=== PATIENT | female | born 1955 | race Caucasian/White ===

== ENCOUNTER 2017-07-22 13:23 | Outpatient (CLI) | payer OTHER ==
--- NOTE | 2017-07-23 17:26 | Mammography Report ---
DIGITAL SCREENING MAMMOGRAM: 07/22/2017 CLINICAL INDICATION: A 61-year-old with history of late childbearing for screening. COMPARISON: 06/2015, 10/2014, 03/2014, 07/2013, 06/2012, 05/2011. TECHNIQUE: Routine CC and MLO projections as well as bilateral laterally exaggerated craniocaudal vi ews were obtained of the breasts. The breasts demonstrate scattered fibroglandular densities bilaterally. Coarse and punctate, typical ly benign calcifications are present. No suspicious masses, clustered microcalcifications, or region s of architectural distortion are identified. IMPRESSION: BENIGN FINDINGS. RECOMMENDATION: ROUTINE ANNUAL SCREENING UNLESS OTHERWISE CLINICALLY INDICATED. BIRADS CATEGORY: 2, BENIGN FINDINGS. STANDARD QUALIFYING STATEMENTS 1. This examination was reviewed with the aid of Computed-Aided Detection (CAD). 2. A negative or benign imaging report should not delay biopsy if clinically suspicious findings are present. Consider surgical consultation if warranted. More than 5% of cancers are not identified b y imaging. 3. Dense breasts may obscure an underlying neoplasm. JOB #: [id number] EXT JOB #:[id number]
== END 2017-07-22 13:24 | disposition home or self-care (01) ==
LOC: DI.S 13:23
PROVIDERS: ATTEND Physician Assistant
DX: Z12.31 Encounter for screening mammogram for malignant neoplasm of breast (principal)
CPT/HCPCS: 77067

== ENCOUNTER 2017-11-16 07:52 | Day surgery (SDC) | payer OTHER ==
[2017-11-16] MEDS ORDERED: LACTATED RINGERS 1,000 ML IV ONE (08:14)
[2017-11-16] MEDS ORDERED: fentaNYL 250 MCG/5 ML VIAL IVP ONE (09:05)
[2017-11-16] MEDS ORDERED: MIDAZOLAM 2 MG/2 ML VIAL IVP ONE (09:05)
[2017-11-16 10:14] VITALS: BP 128/75
== END 2017-11-16 07:53 | disposition home or self-care (01) ==
LOC: SDS 07:52
PROVIDERS: ATTEND Surgery
PROC: 0DBN8ZX Excision of Sigmoid Colon, Via Natural or Artificial Opening Endoscopic, Diagnostic (ICD-10-PCS; 2017-11-16)
PROC: 3E0H8GC Introduction of Other Therapeutic Substance into Lower GI, Via Natural or Artificial Opening Endoscopic (ICD-10-PCS; 2017-11-16)
PROC: 0DBL8ZX Excision of Transverse Colon, Via Natural or Artificial Opening Endoscopic, Diagnostic (ICD-10-PCS; principal; 2017-11-16 09:00)
DX: Z12.11 Encounter for screening for malignant neoplasm of colon (principal); D12.3 Benign neoplasm of transverse colon; D12.5 Benign neoplasm of sigmoid colon; K64.4 Residual hemorrhoidal skin tags
CPT/HCPCS: 45380; 45381; 45385; J3010; J7120

== ENCOUNTER 2018-01-19 15:35 | Outpatient (CLI) | payer OTHER ==
--- NOTE | 2018-01-20 09:37 | XRAY Report ---
TWO VIEW CHEST: 01/19/2018 CLINICAL INDICATION: Pneumonia. FINDINGS: Frontal and lateral views of the chest demonstrate a normal cardiac silhouette. The lungs are clear. No effusion or pneumothorax is present. IMPRESSION: NORMAL CHEST. TD: 01/20/2018 09:01
== END 2018-01-19 15:36 | disposition home or self-care (01) ==
LOC: DI.S 15:35
PROVIDERS: ATTEND Physician Assistant
DX: J18.9 Pneumonia, unspecified organism (principal); J98.4 Other disorders of lung
CPT/HCPCS: 71046

== ENCOUNTER 2018-12-31 09:36 | Outpatient (CLI) | payer MEDICARE ==
--- NOTE | 2019-01-03 09:52 | CT Report ---
Reason: SOLITARY PULMONARY NODULE Procedure Date: 12/31/2018 Accession Number: [id number] / [id number] Procedure: CT - CHEST WO CPT Code: FULL RESULT: EXAM: CT CHEST EXAM DATE: 12/31/2018 09:49 AM. CLINICAL HISTORY: Solitary pulmonary nodule. COMPARISONS: CHEST 2 VIEW 01/19/2018 3:50 PM SHOULDER 2 VIEW LT 09/27/2018 3:18 PM. TECHNIQUE: Routine helical CT imaging was performed through the chest. IV contrast: None. Reconstructions: Coronal and sagittal. In accordance with CT protocol optimization, one or more of the following dose reduction techniques were utilized for this exam: automated exposure control, adjustment of mA and/or KV based on patient size, or use of iterative reconstructive technique. FINDINGS: Lungs/Pleura: In the lateral right lower lobe, series 4 image 39, there is a 3 mm semisolid nodule. No additional pulmonary nodules appreciated. No bronchial thickening, consolidation, or edema. Pulmonary vasculature is normal. No pericardial or pleural effusion. No pneumothorax. Mediastinum: Normal. No adenopathy or masses. The heart and great vessels are normal. Bones: Degenerative osteophytosis of the thoracic spine. Visualized Abdomen: Unremarkable. Other: None. IMPRESSION: 1. Single 3 mm semisolid nodule right lower, lobe series 4 image 39. Recommend follow-up based on Fleischner criteria. If patient is low risk, no specific follow-up is recommended. If patient is at high risk for development of lung cancer, follow-up CT in 12 months would be recommended. RADIA
== END 2018-12-31 09:37 | disposition home or self-care (01) ==
LOC: DI 09:36
PROVIDERS: ATTEND Physician Assistant
DX: R91.1 Solitary pulmonary nodule (principal)
CPT/HCPCS: 71250

== ENCOUNTER 2019-05-26 15:15 | Outpatient (CLI) | payer MEDICARE ==
--- NOTE | 2019-05-26 16:54 | Mammography Report ---
Reason: SCREENING MAMMO Procedure Date: 05/26/2019 Accession Number: [id number] / [id number] Procedure: VANESSA - Screening Mammo w/J Carlos CPT Code: FULL RESULT: EXAM: Screening Mammo w/J Carlos DATE: 05/26/2019 3:40 PM CLINICAL HISTORY: Screening TECHNIQUE: (B) - Bilateral CC and MLO views were obtained. COMPARISON: 06/25/2017, 07/04/2015, 10/22/2014, 04/02/2014 PARENCHYMAL PATTERN: (A) - The breasts demonstrate scattered fibroglandular densities bilaterally. FINDINGS: There are no suspicious masses, calcifications, or areas of distortion. IMPRESSION: Negative examination. BI-RADS category 1. RECOMMENDATION: (ANNUAL) - Recommend routine annual screening mammography. BI-RADS CATEGORY: (1) - Negative. STANDARD QUALIFYING STATEMENTS: 1. This examination was not reviewed with the aid of Computer-Aided Detection (CAD). 2. A negative or benign imaging report should not preclude biopsy if clinically suspicious findings are present. 3. Dense breasts may obscure an underlying neoplasm. 4. This examination was reviewed with the aid of 3D breast imaging (tomosynthesis).
== END 2019-05-26 15:16 | disposition home or self-care (01) ==
LOC: DI 15:15
DX: Z12.31 Encounter for screening mammogram for malignant neoplasm of breast (principal)
CPT/HCPCS: 77063; 77067

== ENCOUNTER 2020-05-13 15:24 | Outpatient (CLI) | payer MEDICARE ==
--- NOTE | 2020-05-13 17:49 | XRAY Report ---
PROCEDURE: Knee 3 View RT INDICATIONS: PAIN IN RIGHT KNEE TECHNIQUE: 3 views of the right knee(s) were acquired. COMPARISON: None. FINDINGS: Bones: No fractures or dislocations. Mild to moderate tricompartment osteoarthritis is seen more pro minent in medial femoral tibial compartment. No suspicious bony lesions. Soft tissues: Small to moderate joint effusion is noted. No suspicious soft tissue calcifications. IMPRESSION: Mild to moderate tricompartmental osteoarthritis with small to moderate joint effusion. No fracture or dislocation. Reviewed by: Joao Boswell MD on 05/13/2020 5:48 PM PDT Approved by: Joao Boswell MD on 05/13/2020 5:48 PM PDT Station ID: [id number]
== END 2020-05-13 15:25 | disposition home or self-care (01) ==
LOC: DI.S 15:24
PROVIDERS: ATTEND Nurse Practitioner Family
DX: M17.11 Unilateral primary osteoarthritis, right knee (principal)

== ENCOUNTER 2020-07-08 12:43 | Outpatient (CLI) | payer MEDICARE ==
--- NOTE | 2020-07-09 15:07 | Mammography Report ---
BILATERAL DIGITAL SCREENING MAMMOGRAM 3D/2D: 07/08/2020 CLINICAL: Routine screening. Comparison is made to exams dated: 05/26/2019 mammogram, 07/22/2017 mammogram, 07/04/2015 mammogram, 10/22/2014 mammogram, and 04/02/2014 mammogram - [facility]. The tissue of both breas ts is heterogeneously dense. This may lower the sensitivity of mammography. No significant masses, calcifications, or other findings are seen in either breast. There has been no significant interval change. IMPRESSION: NEGATIVE There is no mammographic evidence of malignancy. A 1 year screening mammogram is recommended. This exam was interpreted at Station ID: [id number]. NOTE: For mammograms, a report in lay terms will be sent to the patient. Approximately 15% of breast malignancies will not be visualized mammographically. In the management of a palpable breast mass, a negative mammogram must not discourage biopsy of a clinically suspicious lesion. Electronically Signed By: Jaxon no/cari:07/09/2020 12:21:03 ACR BI-RADS Category 1: Negative 3341F PARENCHYMAL PATTERN: (D) - The breast(s) demonstrate(s) heterogeneously dense fibroglandular kathleen kennedy. BI-RADS CATEGORY: (1) - 1 RECOMMENDATION: (ANNUAL) - Recommend routine annual screening mammography. [id number] 1 year screening LATERALITY: (B)
== END 2020-07-08 12:44 | disposition home or self-care (01) ==
LOC: DI 12:43
PROVIDERS: ATTEND Nurse Practitioner Family
DX: Z12.31 Encounter for screening mammogram for malignant neoplasm of breast (principal)

== ENCOUNTER 2020-07-08 12:44 | Outpatient (CLI) | payer MEDICARE ==
--- NOTE | 2020-07-08 15:37 | Ultrasound Report ---
PROCEDURE: Head or Neck Soft Tissue INDICATIONS: LOCALIZED ENLARGED LYMPH NODES TECHNIQUE: Real time scanning was performed of the neck region of interest, with image documentation . COMPARISON: None. FINDINGS: Sonographic images of the inferior supraclavicular region demonstrate a small lymph node me asuring 5 x 3 x 5 mm. This was previously present measuring 6 x 2 x 4 mm. IMPRESSION: Slightly less prominent appearance of supraclavicular lymph node. Reviewed by: Carolyn Bolanos MD on 07/08/2020 3:35 PM PST Approved by: Carolyn Bolanos MD on 07/08/2020 3:35 PM PST Station ID: [id number]
== END 2020-07-08 12:45 | disposition home or self-care (01) ==
LOC: DI 12:44
PROVIDERS: ATTEND Nurse Practitioner Family
DX: R59.0 Localized enlarged lymph nodes (principal)
CPT/HCPCS: 76536

== ENCOUNTER 2021-06-06 12:42 | Outpatient (CLI) | payer MEDICARE | END 2021-06-06 12:43 | disposition home or self-care (01) | LOC: COV 12:42 | PROVIDERS: ATTEND Dermatology MOHS-Micrographic Surgery | DX: Z01.812 Encounter for preprocedural laboratory examination (principal); Z20.822 Contact with and (suspected) exposure to COVID-19 ==

== ENCOUNTER 2021-07-09 10:08 | Outpatient (CLI) | payer MEDICARE ==
--- NOTE | 2021-07-10 09:21 | Mammography Report ---
BILATERAL DIGITAL SCREENING MAMMOGRAM 3D/2D: 07/09/2021 CLINICAL: Routine screening. Comparison is made to exams dated: 07/08/2020 mammogram, 05/26/2019 mammogram, and 07/22/2017 mammogr am - [facility]. The tissue of both breasts is heterogeneously dense. This may low er the sensitivity of mammography. No significant masses, calcifications, or other findings are seen in either breast. There has been no significant interval change. IMPRESSION: NEGATIVE There is no mammographic evidence of malignancy. A 1 year screening mammogram is recommended. This exam was interpreted at Station ID: [id number]. NOTE: For mammograms, a report in lay terms will be sent to the patient. Approximately 15% of breast malignancies will not be visualized mammographically. In the management of a palpable breast mass, a negative mammogram must not discourage biopsy of a clinically suspicious lesion. Electronically Signed By: Trey Kumar M.D. ar/laneyrad:07/09/2021 11:39:03 ACR BI-RADS Category 1: Negative 3341F PARENCHYMAL PATTERN: (D) - The breast(s) demonstrate(s) heterogeneously dense fibroglandular kathleen kennedy. BI-RADS CATEGORY: (1) - 1 RECOMMENDATION: (ANNUAL) - Recommend routine annual screening mammography. [id number] 1 year screening LATERALITY: (B)
== END 2021-07-09 10:09 | disposition home or self-care (01) ==
LOC: DI 10:08
PROVIDERS: ATTEND Nurse Practitioner Family
DX: Z12.31 Encounter for screening mammogram for malignant neoplasm of breast (principal)

== ENCOUNTER 2021-10-29 06:48 | Day surgery (SDC) | payer MEDICARE ==
[2021-10-29] MEDS ORDERED: LACTATED RINGERS 1,000 ML IV ONE (06:54)
--- NOTE | 2021-10-29 07:54 | ANESTHESIA ---
Pre-Anesthesia VS, & Labs - Diagnosis history of colon polyps - Procedure colonoscopy Vital Signs: Temp Pulse Resp BP Pulse Ox 36.4 C L 72 16 160/93 H 97 10/29/21 07:02 10/29/21 07:02 10/29/21 07:02 10/29/21 07:02 10/29/21 07:02 Height: 5 ft 3 in Weight (kg): 68.3 kg Body Mass Index: 26.6 BMI Classification: Overweight - NPO >8 hours - Is Patient ?: No Home Medications and Allergies Sumatriptan Succinate [Imitrex] 100 mg PO DAILY PRN 07/12/14 Acyclovir 400 mg PO PRN PRN 11/15/17 Allergies/Adverse Reactions: Allergies Allergy/AdvReac Type Severity Reaction Status Date / Time hydrochlorothiazide Allergy Rash Verified 10/29/21 06:57 Anes History & Medical History - Anesthetic History Anesthesia Complications: reports: No previous complications - Medical History Cardiovascular: reports: None Pulmonary: reports: None Gastrointestinal: reports: Colon polyps Urinary: reports: None Musculoskeletal: reports: Osteoarthritis Endocrine/Autoimmune: reports: None Skin: reports: Other Smoking Status: Never smoker History of Cancer?: No - Surgical History General: reports: Colonoscopy Eyes Ears Nose Throat (EENT): reports: Cataracts Exam General: Alert, Oriented x3 Dental: WNL Mouth Opening: Can't Open Mouth Neck Mobility: Normal Mallampati classification: II Thyromental Distance: greater than 6 cm Respiratory: Lungs clear Cardiovascular: Regular rate, Normal S1, Normal S2 Plan Anesthesia Type: Total IV Consent for Procedure(s) Verified and Reviewed: Yes Code Status: Attempt Resuscitation ASA classification: 2-Mild systemic disease Is this case an emergency?: No
[2021-10-29] MEDS ORDERED: PROPOFOL 500 MG/50 ML 500 MG/50 ML VIAL ONE (07:57)
[2021-10-29] MEDS ORDERED: LIDOCAINE-MPF 2% 5 ML VIAL ONE (08:51)
[2021-10-29] MEDS ORDERED: LACTATED RINGERS 550 ML IV ONE (09:10)
[2021-10-29 09:38] VITALS: BP 158/98
--- NOTE | 2021-10-29 11:44 | ANESTHESIA POST OP EVALUATION ---
Anesthesia Post Eval - Post Anesthesia Eval Vitals: Last Vital Signs Temp 36.5 C 10/29/21 09:34 Pulse 64 10/29/21 09:34 Resp 14 10/29/21 09:34 BP 158/98 H 10/29/21 09:34 Pulse Ox 100 10/29/21 09:34 CV Function Including HR & BP: Stable Pain Control: Satisfactory Nausea & Vomiting: Negative Mental Status: Baseline Respiratory Status: Airway Patent Hydration Status: Satisfactory Anesthesia Complications: None
== END 2021-10-29 06:49 | disposition home or self-care (01) ==
LOC: SDS 06:48
PROVIDERS: ATTEND Surgery
PROC: 0DBP8ZZ Excision of Rectum, Via Natural or Artificial Opening Endoscopic (ICD-10-PCS; principal; 2021-10-29 08:15)
DX: Z12.11 Encounter for screening for malignant neoplasm of colon (principal); K62.1 Rectal polyp; K64.8 Other hemorrhoids
CPT/HCPCS: 45380; J7120

== ENCOUNTER 2021-11-24 18:33 | Outpatient (CLI) | payer MEDICARE ==
--- NOTE | 2021-11-25 11:58 | Ultrasound Report ---
PROCEDURE: Pelvic w/Transvaginal INDICATIONS: POSTMENOPAUSAL BLEEDING TECHNIQUE: Real-time scanning was performed of the pelvic organs, with image documentation. Additional endovagi nal scanning was necessary due to incomplete visualization of the adnexal and endometrial structures by transabdominal scanning. COMPARISON: None. FINDINGS: Limited scanning through the kidneys shows no hydronephrosis. No pathologic free abdominal or pelvic fluid. Uterus: Uterus is normal in size at 6.4 x 3.8 x 4.3 cm. The endometrium is overall complex. While t he majority of endometrium ranges in size from 2 to 3 mm, there is a polypoid appearing focus of incr eased echogenicity measuring 7 x 6 x 8 mm. Nabothian cysts are noted. In addition, there is a left an terior subserosal focus of heterogeneous echogenicity within the uterus measuring 13 x 12 x 15 mm. Ovaries: Right ovary measures 1.4 x 0.9 x 1.4 cm, volume 0.9 cc. Left ovary measures 1.4 x 1.1 x 1.3 7 m, volume 1 cc. Other: No free pelvic fluid. IMPRESSION: Masslike focus of increased echogenicity within the endometrium possibly representing a polyp. Howeve r, etiology is indeterminate on the basis of this exam. Given patient is postmenopausal with bleeding , malignancy should be excluded with endometrial sampling or potentially MRI. Small focus of heterogeneous echogenicity within the uterus suggestive of fibroid. Reviewed by: Carolyn Bolanos MD on 11/25/2021 11:57 AM PDT Approved by: Carolyn Bolanos MD on 11/25/2021 11:57 AM PDT Station ID: [id number]
== END 2021-11-24 18:34 | disposition home or self-care (01) ==
LOC: DI 18:33
PROVIDERS: ATTEND Nurse Practitioner Family
DX: N95.0 Postmenopausal bleeding (principal)

== ENCOUNTER 2022-01-06 08:56 | Outpatient (CLI) | payer MEDICARE ==
[2022-01-06 14:44] LABS: ALBUMIN 3.8 g/dL (3.2-5.5); ALBUMIN/GLOBULIN RATIO 1.3 (1.0-2.2); ALKALINE PHOSPHATASE 75 IU/L (42-121); ALT ALANINE AMINOTRANSFERASE 64 IU/L (10-60); AST ASPARTATE AMINOTRANSFERASE 32 IU/L (10-42); BILIRUBIN,TOTAL 0.7 mg/dL (0.2-1.0); BUN - BLOOD UREA NITROGEN 23 mg/dL (6-20); CALCIUM 9.4 mg/dL (8.5-10.3); CARBON DIOXIDE - CO2 29 mmol/L (21-32); CHLORIDE 102 mmol/L (101-111); CHOL/HDL RATIO 1.9 (<4.4); CHOLESTEROL 214 mg/dL; CREATININE 0.8 mg/dL (0.4-1.0); GFR - MDRD 71 (>89); GLUCOSE 137 mg/dL (70-100); HDL CHOLESTEROL 111 mg/dL; LDL CHOLESTEROL,CALCULATED 88 mg/dL; LDL/HDL RATIO 0.8 (<4.4); POTASSIUM 3.9 mmol/L (3.5-5.0); SODIUM 140 mmol/L (135-145); TOTAL PROTEIN 6.8 g/dL (6.7-8.2); TRIGLYCERIDES 77 mg/dL; VLDL CHOLESTEROL 15 mg/dL
== END 2022-01-06 08:57 | disposition home or self-care (01) ==
LOC: LAB.S 08:56
PROVIDERS: ATTEND Nurse Practitioner Family
DX: E78.5 Hyperlipidemia, unspecified (principal)
CPT/HCPCS: 36415; 80053; 80061; 83721

== ENCOUNTER 2022-03-06 09:56 | Outpatient (CLI) | payer MEDICARE | END 2022-03-06 09:57 | disposition home or self-care (01) | LOC: LAB 09:56 | PROVIDERS: ATTEND Obstetrics & Gynecology | DX: Z01.812 Encounter for preprocedural laboratory examination (principal); Z20.822 Contact with and (suspected) exposure to COVID-19 ==

== ENCOUNTER 2022-06-27 20:38 | Outpatient (CLI) | payer MEDICARE | END 2022-06-27 20:39 | disposition EMS.NT | LOC: EMS 20:38 | DX: Z03.89 Encounter for observation for other suspected diseases and conditions ruled out (principal) ==

== ENCOUNTER 2022-11-24 13:28 | Outpatient (CLI) | payer MEDICARE ==
--- NOTE | 2022-11-24 18:07 | DEXA Report ---
PROCEDURE: Dexa Spine and/or Hip INDICATIONS: SCREENING FOR OSTEOPOROSIS TECHNIQUE: Dual energy x-ray absorptiometry (DXA) was performed on a [employer] System. Regions measur ed are the AP Spine, femoral neck, and if needed forearm. COMPARISON: None. FINDINGS: Lumbar Spine: Bone Mineral Density 1.3-4 g/cm/cm,T score 1.2, normal Left Femoral Neck: Bone Mineral Density 0.766 g/cm/cm, T score -1.9, osteopenia Left Hip: Bone Mineral Density 0.850 g/cm/cm,T score -1.2, osteopenia (T score greater or equal to -1.0: NORMAL) (T score from -1.1 to -2.4: OSTEOPENIA) (T score less than or equal to -2.5 to: OSTEOPOROSIS) Impression: Osteopenia Patients with diagnosis of osteoporosis or osteopenia should have regular bone mineral density assess ment. For those eligible for Medicare, routine testing is allowed once every 2 years. Testing frequ ency can be increased for patients who have rapidly progressing disease or for those who are receivin g medical therapy to restore bone mass. Reviewed by: Nick Aguilera MD on 11/24/2022 5:06 PM VICKEY Approved by: Nick Aguilera MD on 11/24/2022 5:06 PM VICKEY Station ID: [id number]
== END 2022-11-24 13:29 | disposition home or self-care (01) ==
LOC: DI 13:28
PROVIDERS: ATTEND Nurse Practitioner Family
DX: Z13.820 Encounter for screening for osteoporosis (principal); M85.89 Other specified disorders of bone density and structure, multiple sites

== ENCOUNTER 2022-11-24 13:29 | Outpatient (CLI) | payer MEDICARE ==
--- NOTE | 2022-11-25 10:36 | Mammography Report ---
BILATERAL DIGITAL SCREENING MAMMOGRAM 3D/2D: 11/24/2022 CLINICAL: Routine screening. Comparison is made to exams dated: 07/09/2021 mammogram, 07/08/2020 mammogram, 05/26/2019 mammogram, 07/22/2017 mammogram, 07/04/2015 mammogram, and 10/22/2014 mammogram - [facility]. Both breasts are heterogeneously dense, which may obscure small masses (category c / 51-75% glandular tissue). No significant masses, calcifications, or other findings are seen in either breast. There has been no significant interval change. IMPRESSION: NEGATIVE There is no mammographic evidence of malignancy. A 1 year screening mammogram is recommended. Based on the Tyrer Cuzick model (a risk assessment model) the patients lifetime risk is 10.7% and he r 10 year risk is 6.3%. According to the ACR, ACS, and NCCN guidelines, an annual breast MRI exam elena ng with mammogram is recommended if the patients lifetime risk is 20% or greater. This exam was interpreted at Station ID: [id number]. NOTE: For mammograms, a report in lay terms will be sent to the patient. Approximately 15% of breast malignancies will not be visualized mammographically. In the management of a palpable breast mass, a negative mammogram must not discourage biopsy of a clinically suspicious lesion. Electronically Signed By: Ajay carson/cari:11/24/2022 17:20:43 letter sent: No_Letter ACR BI-RADS Category 1: Negative 3341F PARENCHYMAL PATTERN: (D) - The breast(s) demonstrate(s) heterogeneously dense fibroglandular kathleen kennedy. BI-RADS CATEGORY: (1) - 1 Mammogram [id number] 1 year screening LATERALITY: (B)
== END 2022-11-24 13:30 | disposition home or self-care (01) ==
LOC: DI 13:29
PROVIDERS: ATTEND Nurse Practitioner Family
DX: Z12.31 Encounter for screening mammogram for malignant neoplasm of breast (principal)